=== PATIENT | female | born 1965 | race Caucasian/White ===

== ENCOUNTER 2020-11-28 09:35 | Day surgery (SDC) | payer MEDICAID ==
[2020-11-24 10:59] VITALS: BMI 28.3
[~2020-11-28 09:35] MED LIST: LACTATED RINGERS 1,000 ML IV SCH
[2020-11-28 10:04] VITALS: RESP 16; TEMP 98.8
[2020-11-28] MEDS ORDERED: LIDOCAINE 1% (10MG/ML) FOR IV START INTRADERMA ONE (10:10)
[2020-11-28] MEDS ORDERED: MIDAZOLAM 2 MG/2 ML VIAL ONE (10:48)
[2020-11-28] MEDS ORDERED: fentaNYL (PF) 50 MCG/ML 2 ML AMP ONE (10:48)
[2020-11-28] MEDS ORDERED: PROPOFOL 10 MG/ML 20 ML VIAL IV ONE (10:48)
--- NOTE | 2020-11-28 11:23 | P.PCN ---
Date of Procedure: 11/28/20 Description of Procedure: BRIEF HISTORY: Patient is a 55-year-old female presenting for outpatient colonoscopy for family history of colon cancer. She denies any change in bowel habits or blood per rectum. Last colonoscopy performed remotely at which time she reports she had endometriosis. She reports colon cancer in her grandparents in high-risk polyps in her siblings. PROCEDURE PERFORMED: Colonoscopy with polypectomy. PREOPERATIVE DIAGNOSIS: Family history of colon cancer, remote history of colonoscopy. ESTIMATED BLOOD LOSS: Minimal. IV sedation per Anesthesia. PROCEDURE: After informed consent was obtained, the patient, was brought into the endoscopy unit. IV sedation was administered by Anesthesia under continuous monitoring. Digital rectal examination was normal. Initially the Olympus CF-190 flexible video colonoscope was then inserted in the rectum, gradually advanced into the cecum without any difficulty. Careful examination was performed as the scope was gradually being withdrawn. Ileocecal valve and the appendiceal orifice were visualized and appeared normal. Prep was excellent. Mucosa of the cecum, ascending colon, transverse colon, descending colon, sigmoid colon, and rectum appeared normal. A few scattered diverticula noted in the sigmoid colon. 2 diminutive polyps measuring 1 mm in size removed from the transverse colon and rectum with cold forcep polypectomy. Retroflexion was performed in the rectum and no lesions were seen. The patient tolerated the procedure well. IMPRESSION: 2 diminutive polyps removed with cold forcep polypectomy from the transverse colon and rectum. Mild sigmoid diverticulosis. RECOMMENDATIONS: Findings of this examination were discussed with the patient . Okay to resume diet. Okay to resume medications. Await pathology from polypectomy. Recommend repeat colonoscopy in 5 years for family history of colon cancer.
[2020-11-28 12:04] VITALS: BP 106/72; PULSE 74
== END 2020-11-28 12:00 | disposition home or self-care (01) ==
LOC: ORWHC2ENDO 09:35
PROVIDERS: ATTEND Internal Medicine
DX: Z12.11 Encounter for screening for malignant neoplasm of colon (principal); D12.3 Benign neoplasm of transverse colon; K62.1 Rectal polyp; Z80.0 Family history of malignant neoplasm of digestive organs; K57.30 Diverticulosis of large intestine without perforation or abscess without bleeding; Z90.710 Acquired absence of both cervix and uterus; Z98.890 Other specified postprocedural states; Z79.1 Long term (current) use of non-steroidal anti-inflammatories (NSAID); Z79.890 Hormone replacement therapy; Z91.040 Latex allergy status; Z88.2 Allergy status to sulfonamides
CPT/HCPCS: 88305; 45380; J2250; J3010; J2704